=== PATIENT | female | born 1980 | race Caucasian/White ===

== ENCOUNTER → 2021-07-19 | Day surgery (SDC) | payer OTHER ==
[~2021-07-19] VITALS: Ht 157.5 cm; Wt 82.5 kg
[~2021-07-19] MED LIST: ASPIRIN325 M1 PO; IBUPROFEN800 M1 PO; L-METHYLFOLATE15 MG IJ; MULTIVITAMIN1 EACH PO
[2021-07-19 08:55] LABS: HCG (URINE) SCREEN NEGATIVE (NEGATIVE)
== END | disposition home or self-care (01) ==
LOC: FAS 08:27
PROVIDERS: Obstetrics & Gynecology
DX: N93.9 Abnormal uterine and vaginal bleeding, unspecified (principal); D68.51 Activated protein C resistance; Z88.5 Allergy status to narcotic agent; Z88.0 Allergy status to penicillin; Z88.6 Allergy status to analgesic agent; Z91.040 Latex allergy status; Z90.49 Acquired absence of other specified parts of digestive tract; Z90.3 Acquired absence of stomach [part of]; Z80.49 Family history of malignant neoplasm of other genital organs
CPT/HCPCS: 84703; 93005; J1100; J1644; J1885; J2250; J2405; J2704; J2710; J3010; J7120